=== PATIENT | female | born 1940 | race Two or more races ===

== ENCOUNTER 2021-06-11 05:33 | Day surgery (SDC) | payer OTHER ==
[~2021-06-11 05:33] MED LIST: AZOR 5-40 MG T1 EACH PO; CHILDREN'S ASPI81 MG PO; FOLIC A PO; GABAP PO; SIMVAST PO; VITAMIN D3 PO
== END 2021-06-11 12:10 | disposition home or self-care (01) ==
LOC: EDBD → CIR.AMB 05:33
PROVIDERS: ATTEND Orthopaedic Surgery Hand Surgery
DX: S52.531A Colles' fracture of right radius, initial encounter for closed fracture (principal); Z20.822 Contact with and (suspected) exposure to COVID-19
CPT/HCPCS: 25609; 25118; 25280; C1776